=== PATIENT | female | born 1960 | race Caucasian/White ===

== ENCOUNTER → 2017-04-04 | Outpatient (CLI) | payer OTHER ==
[~2017-04-04] MED LIST: DIAZEPAM 10 MG TABLET. ONE; EPINEPHrine 1 MG/ML VIAL ONE; IODIXANOL 270 MG/ML 100 ML VIAL. ONE; IV NORMAL SALINE 1000ML BAG 1,000 ML ONE; LIDOCAINE 1% Multi-Dose 20 ML VIAL. ONE; MIDAZOLAM HCL/PF 2 MG/2 ML VIAL. ONE; fentaNYL PF VIAL 100 MCG/2 ML VIAL ONE
--- NOTE | 2017-04-04 09:54 | PCVCINTER ---
EXAM: 1. AORTOGRAM AND BILATERAL LOWER EXTREMITY RUNOFF ANGIOGRAM 2. BILATERAL RENAL ANGIOGRAPHY INDICATION: Peripheral arterial disease. Hemarthrosis following right knee hemiarthroplasty. Evaluate for vascular abnormality. Renal atherosclerosis. PROCEDURE: Procedure and risks of angiography intervention is appropriate including limb loss stroke and were discussed with the patient's family and consent obtained. The patient's left groin was prepped abnormal sterile fashion. IV conscious sedation was used to procedure with appropriate monitoring from 8:30 AM through 9:15 AM. Ultrasound was used to interrogate the left groin and showed the left common femoral artery to be patent. A permanent spot film was obtained. Under ultrasound guidance access into the left common femoral artery was obtained and a 5 Hebrew sheath was placed. Through this a 5 Hebrew flush catheter was placed into the abdominal aorta at the level of the renal arteries and AP aortogram was performed. Catheter was positioned at the aortic bifurcation and both oblique views of the pelvis were obtained. Catheter was positioned into the left external iliac artery and left leg runoff angiography was performed. Catheter was exchanged for a visceral catheter was placed into the right renal arteries and right renal angiograms obtained. Catheter was placed into the the left renal arteries and left renal angiograms were obtained. Catheter was advanced to the level of the right common femoral artery and right leg runoff angiography was obtained. Catheters and wires were removed. Sheath was removed and hemostasis obtained using the FISH device. No immediate complications. FINDINGS: Aortogram: There is one right and 2 left renal arteries. Minimal plaque infrarenal abdominal aorta without significant stenosis. Pelvis: The right and left common and external iliac arteries are patent. The right and left internal iliac arteries are patent. The right and left common femoral and profunda femoral arteries are patent. Right renal artery: Moderate changes of fibromuscular dysplasia in the mid main renal artery. No branch vessel stenosis. Left renal artery: There are 2 left renal arteries both are similar in size. The upper renal artery shows good patency throughout. The lower renal artery shows minimal changes of fibromuscular dysplasia. Right leg: Minimal plaque in the superficial femoral artery and popliteal artery without significant stenosis. Diffuse mild hypervascularity about the right knee consistent with prior surgery and recent joint inflammation but no evidence of focal vascular abnormality or arteriovenous malformation. No obvious traumatic injury to the arteries about the knee. Three-vessel runoff into the foot is patent with the posterior tibial artery being the dominant runoff vessel. Left leg: The superficial femoral artery and popliteal arteries show minimal plaque without significant stenosis. No vascular abnormality. Three-vessel runoff into the foot with the posterior tibial artery being the dominant runoff vessel. IMPRESSION: Mild hypervascularity about the right knee diffusely without evidence of focal traumatic arterial injury or vascular malformation. No flow limiting stenosis seen in either lower extremity. Moderate changes of fibromuscular dysplasia in the mid right renal artery. follow up LOC:[id number]
== END | disposition home or self-care (01) ==
LOC: PCVCINTER 07:40
PROVIDERS: ATTEND Nuclear Medicine Nuclear Cardiology
DX: I70.213 Atherosclerosis of native arteries of extremities with intermittent claudication, bilateral legs (principal); I70.1 Atherosclerosis of renal artery
CPT/HCPCS: 36246; 36252; 75716; 76937; 99152; 99153; C1751; C1769; C1894; J0171; J1644; J2250; J3010; J7030; Q9966